=== PATIENT | female | born 1985 | race Caucasian/White ===

== ENCOUNTER 2023-12-04 02:34 | Inpatient (IN) ==
[2023-12-04] MEDS ORDERED: Lidocaine 1% VIAL 10 MG/ML 30 ML VIAL INJ PRN (03:03)
[2023-12-04] MEDS ORDERED: Prochlorperazine 5 mg/ml 2 ml VIAL (10 mg) IV PRN (03:03)
[2023-12-04 04:58] LABS: Urine Benzodiazepine Screen None Detected (None Detect); Urine Opiates Screen None Detected (None Detect)
[2023-12-04] MEDS: Lactated Ringers 1000 ml BAG 1,000 ML IV SCH (13:04)
[2023-12-04] MEDS: Ondansetron 4 mg VIAL 2 MG/ML 2 ml VIAL IV PRN (17:07)
[2023-12-04] MEDS: Lactated Ringers 1000 ml BAG 1,000 ML IV ONE (20:00)
[2023-12-04 20:41] LABS: ABS Basophils 0.1 10^3/uL (0.0-0.1); ABS Lymphocytes 1.2 10^3/uL (1.0-4.8); ABS Monocytes 0.2 10^3/uL (0.0-0.9); ABS Neutrophils 15.6 10^3/uL (1.5-7.6); ABS Nucleated RBC 0.01 10^3/ul; Hematocrit 40.8 % (35-45); Hemoglobin 13.9 g/dL (11.5-14.3); Mean Corpuscular Hemoglobin 29.1 pg (27-33); Mean Corpuscular Hgb Conc 33.9 g/dL (31-36); Mean Corpuscular Volume 85.9 fL (80-97); Mean Platelet Volume 10.5 fL (7.5-11.2); Platelet Count 255 10^3/uL (150-450); Red Blood Count 4.76 10^6/uL (3.63-4.92)
[2023-12-04] MEDS: OBEPIDURAL (200 ML) 200 ML EPIDURAL ONE (21:42)
[2023-12-04] MEDS ORDERED: Phenylephrine 40 mcg/mL 10mL (400mcg) SYRINGE IV PUSH PRN ×2 (21:49)
[2023-12-04 22:28] LABS: Urine Appearance Clear; Urine Bilirubin Negative (Negative); Urine Blood Negative (Negative); Urine Color Yellow; Urine Glucose Negative (Negative); Urine Ketones 4+ (Negative); Urine Nitrite Negative (Negative); Urine Protein Trace (Negative); Urine Urobilinogen Negative (Negative); Urine pH 5.5 (5.0-8.0)
[2023-12-05] MEDS: Lactated Ringers 1000 ml BAG 1,000 ML IV SCH (01:44)
[2023-12-05] MEDS: Oxytocin in LR 20,000 MILLI.UNIT/1,000 ML BAG IV SCH ×2 (10:08→20:52)
[2023-12-05] MEDS ORDERED: fentaNYL 100 mcg/2 ml 50 MCG/ML VIAL ONE (17:03)
[2023-12-05] MEDS ORDERED: Morphine PF AMP (0.5MG/ML) 5 MG/10 ML AMP ONE (17:03)
[2023-12-05] MEDS: Sodium Citrate/Citric Acid LIQ 15 ML UDC PO PRN (17:13)
[2023-12-05] MEDS: ceFOXitin 2 GM IVPREMIX 2 GM/50 ML BAG IVPB ONE (17:15)
[2023-12-05] MEDS ORDERED: Ondansetron 4 mg VIAL 2 MG/ML 2 ml VIAL ONE (17:35)
[2023-12-05] MEDS ORDERED: Phenylephrine 40 mcg/mL 10mL (400mcg) SYRINGE ONE (17:35)
[2023-12-05] MEDS ORDERED: Dexamethasone IV 4 MG/ML VIAL 1 ml VIAL ONE (17:35)
[2023-12-05] MEDS ORDERED: Oxytocin 10 UNITS/ML 1 ML VIAL ONE (17:43)
[2023-12-05] MEDS ORDERED: Acetaminophen IV 1 GM/100ML 1,000 MG/100 ML BAG IV ONE (18:04)
[2023-12-05] MEDS ORDERED: Ondansetron 4 mg VIAL 2 MG/ML 2 ml VIAL IV PRN (18:25)
[2023-12-05] MEDS ORDERED: Naloxone 0.4 mg VIAL 0.4 mg/ml 1 ml VIAL IV PUSH PRN (18:25)
[2023-12-05] MEDS ORDERED: Metoclopramide 5 MG/ML VIAL (10 mg) IV PRN (18:25)
[2023-12-05] MEDS ORDERED: Glycerin ADULT 2.4 gm SUPP PR PRN (19:01)
[2023-12-05] MEDS ORDERED: Dibucaine 1% OINT 28.35 GM TUBE PR PRN (19:01)
[2023-12-06] MEDS: AZITHROMYCIN 500 MG/250 ML IVPB ONE (00:58)
[2023-12-06] MEDS: SODIUM CHLORIDE IVPB ONE (00:58)
[2023-12-06] MEDS: Acetaminophen IV 1 GM/100ML 1,000 MG/100 ML BAG IV PRN (02:22)
[2023-12-06 05:55] LABS: ABS Basophils 0.1 10^3/uL (0.0-0.1); ABS Lymphocytes 1.2 10^3/uL (1.0-4.8); ABS Neutrophils 13.6 10^3/uL (1.5-7.6); Hemoglobin 9.8 g/dL (11.5-14.3); Lymphocyte % 7.3 %; Mean Corpuscular Hemoglobin 29.1 pg (27-33); Mean Corpuscular Hgb Conc 33.9 g/dL (31-36); Mean Corpuscular Volume 85.8 fL (80-97); Mean Platelet Volume 10.1 fL (7.5-11.2); Platelet Count 190 10^3/uL (150-450); Red Blood Count 3.38 10^6/uL (3.63-4.92); Red Cell Distribution Width 14.5 % (12-17); White Blood Count 15.9 10^3/uL (3.8-11.8)
[2023-12-06] MEDS: Lactated Ringers 1000 ml BAG 1,000 ML IV SCH (06:40)
[2023-12-06] MEDS: OBEPIDURAL (200 ML) 200 ML EPIDURAL SCH (07:19)
[2023-12-06] MEDS: miSOPROStol 100 mcg TAB VAGINAL ONE (07:20)
[2023-12-06] MEDS: Lactated Ringers 1000 ml BAG 1,000 ML IV ONE (07:20)
[2023-12-06] MEDS: Phenylephrine 40 mcg/mL 10mL (400mcg) SYRINGE ONE (07:20)
[2023-12-06] MEDS: Buffered Lidocaine 1% SYRIN 1 ml INTRADERM ONE (07:20)
[2023-12-06] MEDS: Lidocaine 1.5% EPI 1:200,000 30 ML SDV ONE (07:20)
[2023-12-07] MEDS: Witch Hazel PAD JAR TOPICAL PRN (09:05)
[2023-12-08 09:14] VITALS: BP 112/75
== END 2023-12-08 13:25 | disposition home or self-care (01) | DRG 540 ==
LOC: MCHOBOUT 02:34 → MCHOB 03:01
PROVIDERS: ADMIT Registered Nurse; ATTEND Obstetrics & Gynecology